=== PATIENT | female | born 1955 | race Two or more races ===

== ENCOUNTER 2024-10-17 23:29 | Emergency (ER) | payer OTHER ==
[~2024-10-17] VITALS: Ht 160 cm; Wt 65.9 kg
--- NOTE | 2024-10-17 23:44 | ED.PDOC ---
Back pain HPI HPI Comments PATIENT ACCIDENTALLY CUT HIS LEFT FERRIS ON A LAUNDRY HAMPER. PATIENT HAS AN APPROXIMATE 4INCH FULL THICKNESS LACERATION ON HIS LEFT FERRIS. CURRENTLY WRAPPED WITH GAUZE AND COBAN. DENIES NUMBNESS OR WEAKNESS OR ANY OTHER KNOWN INJURY Chief Complaint: Upper Extremity Time Seen by MD: 23:41 Reviewed Notes: Nurses Notes, Medications, Allergies Allergies: Coded Allergies: NO KNOWN ALLERGIES (Unverified , 10/17/24) Information Source: Patient Mode of Arrival: Ambulatory Physical Exam General Appearance: No Apparent Distress, Normal HEENT: Normal ENT Inspection, Pharynx Normal, TMs Normal Neck: Full Range of Motion, Non-Tender, Normal, Normal Inspection Respiratory: Chest Non-Tender, Lungs Clear, No Accessory Muscle Use, No Respiratory Distress, Normal Breath Sounds Cardiovascular: No Edema, No JVD, No Murmur, No Gallop, Normal Peripheral Pulses, Regular Rate/Rhythm Breast Exam: Deferred Gastrointestinal: No Organomegaly, Non Tender, No Pulsatile Mass, Normal Bowel Sounds, Soft Genitalia: Deferred Pelvic: Deferred Rectal: Deferred Extremities: No calf tenderness, Normal capillary refill, Normal inspection, Normal range of motion, Non-tender, No pedal edema Musculoskeletal : Apperance: Normal Neurologic: Alert, manager customer service II-XII nml as Tested, No Motor Deficits, Normal Affect, Normal Mood, No Sensory Deficits Cerebellar Function: Normal Reflexes: Normal Skin: Dry, Normal Color, Warm Lymphatic: No Adenopathy Was a procedure done? Was a procedure done?: No Back Pain Differential Dx Differential Diagnosis: Fracture, Musculoskeletal Pain, Strain X-Ray, Labs, Meds, VS Vital Signs Date Time Temp Pulse Resp B/P (MAP) Pulse Ox O2 Delivery O2 Flow Rate FiO2 10/18/24 01:30 84 10/18/24 01:30 98.9 84 18 154/94 (114) 98 98.9 10/17/24 23:33 98.9 84 18 154/94 95 98.9 Current Medications Medications (Trade) Dose Ordered Sig/Guille Route Start Time Stop Time Status Last Admin Acetaminophen/ Hydrocodone Bitart ([place] 5/325MG Tab) 1 tab ONCE ONCE PO 10/18/24 01:15 10/18/24 01:16 DC 10/18/24 01:32 Ibuprofen (Motrin Tablet) 600 mg ONCE ONCE PO 10/18/24 01:15 10/18/24 01:16 DC 10/18/24 01:32 X-Ray, Labs, Meds, VS Comment CLINICAL INDICATION: S/P FALL INJURY TECHNIQUE: XY R FOREARM XRAY, XY R WRIST 3+ VIEW XRAY Comparison: None FINDINGS/IMPRESSION: : Mildly displaced comminuted distal radial fracture with intra-articular extension. Moderate degenerative changes of the trapeziometacarpal and STT joints marked by joint space narrowing, marginal osteophytosis and subchondral sclerosis. Soft tissues are unremarkable. PATIENT PLACED IN VELCRO SPLINT. PATIENT GIVEN NORCO 5 MG P.O. AND TORADOL 60 MG IM REPORTS IMPROVEMENT IN PAIN REQUESTING DISCHARGE AT THIS TIME. TRIAL OF MELOXICAM ADVISED TAKE MEDICATIONS PRESCRIBED SIDE EFFECTS DISCUSSED. ADVISED KEEP SPLINT ON UNTIL FOLLOW UP WITH ORTHO PATIENT STATES SHE WILL FOLLOW UP WITH HER SURGEON WHO DID HER CARPAL TUNNEL RECENTLY. ER RETURN PRECAUTIONS GIVEN PATIENT INDICATES UNDERSTANDING AND AGREES WITH DISCHARGE PLAN OF CARE. Time of 1ST Reevaluation: 23:43 Reevaluation 1ST: Unchanged Time of 2ND Reevaluation: 23:35 Reevaluation 2ND: Improved Patient Education/Counseling: Diagnosis, Treatment, Prognosis, Need For Follow Up Family Education/Counseling: No Family Present SEPSIS Sepsis Screen Date sepsis recognized/suspect: Oct 17, 2024 Time Sepsis recognized/suspect: 2332 Recent Procedure: No On Antibiotic Therapy: No Respiratory Rate >20: No Heart Rate >90: No Temp<36 C (96.8 F) or >38.3 C: No SBP <90 or MAP <65 mmHG: No New Acute Mental Status Change: No Is the patient on CPAP, BIPAP,: No Physician Orders R Wrist 3+ View Xray (10/17/24 23:45) R Forearm Xray (10/17/24 23:45) Splints (10/18/24 ) Apply Sling (10/18/24 00:53) Vital Signs Date Time Temp Pulse Resp B/P (MAP) Pulse Ox O2 Delivery O2 Flow Rate FiO2 10/18/24 01:30 84 10/18/24 01:30 98.9 84 18 154/94 (114) 98 98.9 10/17/24 23:33 98.9 84 18 154/94 95 98.9 Medications Medications Dose Ordered Sig/Guille Route Start Time Stop Time Status Last Admin Dose Admin Acetaminophen/ Hydrocodone Bitart 1 tab ONCE ONCE PO 10/18/24 01:15 10/18/24 01:16 DC 10/18/24 01:32 Ibuprofen 600 mg ONCE ONCE PO 10/18/24 01:15 10/18/24 01:16 DC 10/18/24 01:32 Departure 1 Departure Time of Disposition: 00:54 Impression: Primary Impression: Fracture of distal end of right radius Qualified Codes: S52.591A - Other fractures of lower end of right radius, initial encounter for closed fracture Disposition: HOME / SELF CARE / HOMELESS Condition: Stable e-Prescriptions Meloxicam (Meloxicam) 15 Mg Tab 1 TAB PO DAILY for 10 Days, #10 TAB Prov: HAMIDA LOPEZ 10/18/24 Discharged With: Self Critical Care Note Critical Care Time?: No Stability Stability form required: HAMIDA Dubois Oct 17, 2024 23:44
--- NOTE | 2024-10-18 00:42 | DVH ---
CLINICAL INDICATION: S/P FALL INJURY TECHNIQUE: XY R FOREARM XRAY, XY R WRIST 3+ VIEW XRAY Comparison: None FINDINGS/IMPRESSION: : Mildly displaced comminuted distal radial fracture with intra-articular extension. Moderate degenerative changes of the trapeziometacarpal and STT joints marked by joint space narrowin g, marginal osteophytosis and subchondral sclerosis. Soft tissues are unremarkable.
[2024-10-18 01:30] VITALS: BP 154/94; PULSE 84; RESP 18; TEMP 98.9; O2SAT 98
[2024-10-18] MEDS: IBUPROFEN 600 MG TAB PO ONE (01:32)
[2024-10-18] MEDS: HYDROcodone-ACET 5/325MG TAB PO ONE (01:32)
[2024-10-18] MEDS ORDERED: MELO15TA29 PO (02:56)
== END 2024-10-18 02:11 | disposition home or self-care (01) ==
LOC: ER 23:29
DX: S52.591A Other fractures of lower end of right radius, initial encounter for closed fracture (principal); X58.XXXA Exposure to other specified factors, initial encounter; Y93.89 Activity, other specified; Y92.89 Other specified places as the place of occurrence of the external cause; Y99.8 Other external cause status
CPT/HCPCS: 29125; 73090; 73110